=== PATIENT | male | born 1995 | race Caucasian/White ===

== ENCOUNTER 2023-12-12 16:18 | Emergency (ER) | payer SELFPAY ==
--- NOTE | ~2023-12-12 | XR_ITS ---
EXAMINATION: XR CHEST CLINICAL INFORMATION: Coughing. COMPARISON: None available. TECHNIQUE: Frontal view of the chest was obtained. FINDINGS: No significant abnormality is noted involving the heart, lungs, mediastinum, bony thorax or soft tissues. XR/XR chest 1V IMPRESSION: Unremarkable chest examination. Electronically signed by: Amauri Mackenzie MD 12/12/2023 07:39 PM EDT RP
[2023-12-12 16:59] VITALS: BP 139/99; PULSE 107; RESP 16; TEMP 36.1; O2SAT 99; BMI 23.1
[2023-12-12 18:52] LABS: IDNOW Serial# 08D9AD1C; Strep A Nucleic Acid Negative (Negative)
[2023-12-12 19:21] LABS: Influenza A PCR NEGATIVE (Negative); Influenza B PCR NEGATIVE (Negative); Resp Syncy Virus RNA Qual PCR NEGATIVE (Negative); SARS COV2 PCR INHOUSE NEGATIVE (Negative)
== END 2023-12-12 21:45 | disposition left against medical advice (07) ==
PROVIDERS: Physician Assistant; Emergency Provider Emergency Medicine
DX: R05.9 Cough, unspecified (principal); R51.9 Headache, unspecified; Z03.818 Encounter for observation for suspected exposure to other biological agents ruled out
CPT/HCPCS: 0241U; 71045; 87651; 99281

== ENCOUNTER 2024-03-21 08:51 | Emergency (ER) | payer MEDICAID, SELFPAY ==
[2024-03-21 09:06] VITALS: BP 129/84; PULSE 70; RESP 16; TEMP 36.4; O2SAT 100; BMI 22.4
[2024-03-21] MEDS: Ondansetron ODT 4 MG TAB.RAPDIS TRANSLINGU ×2 (09:46→10:26)
[2024-03-21 09:53] LABS: MANUAL DIFF FLAG NO
[2024-03-21 09:54] LABS: Basophils Percent Auto 0.3 % (0-2); Eosinophils Percent Auto 0.6 % (0-4); Hematocrit 36.4 % (42.0-52.0); Hemoglobin 12.3 g/dl (14.0-18.0); Imm Gran Abs Auto 0.03 X10*3/uL (0.00-0.03); Imm Gran Pct Auto 0.5 % (0.0-0.4); Lymphocytes Absolute Auto 1.2 X10*3/uL (1.2-4.9); Lymphocytes Percent Auto 18.1 % (20-40); Mean Corpuscular HGB Conc 33.8 g/dl (31.0-36.0); Mean Corpuscular Hemoglobin 27.6 pg (27.0-33.0); Mean Corpuscular Volume 81.6 fL (80.0-98.0); Mean Platelet Volume 8.2 fL (9.4-12.4); Monocytes Absolute Auto 0.4 X10*3/uL (0.1-1.2); Monocytes Percent Auto 6.6 % (2-11); Neutrophils Absolute Auto 4.7 x10*3/uL (2.0-8.3); Neutrophils Percent Auto 73.9 % (45-73); Platelet Count 250 X10*3/uL (160-400); Red Blood Count 4.46 X10*6/uL (4.60-5.80); Red Cell Distribution Width 13.3 % (11.0-16.0); White Blood Count 6.4 X10*3/uL (4.8-10.8)
[2024-03-21 10:11] LABS: Alanine Aminotransferase 15 U/L (0-40); Albumin Level 4.2 g/dL (3.5-5.0); Alkaline Phosphatase 81 U/L (39-117); Anion Gap 9 (12-20); Aspartate Amino Transferase 31 U/L (5-37); Bilirubin Direct 0.1 mg/dL (0.0-0.5); Bilirubin Total 0.3 mg/dL (0.0-1.0); Blood Urea Nitrogen 14 mg/dL (9-16); Calcium 8.7 mg/dL (8.4-10.2); Carbon Dioxide 30 mmol/L (22-29); Chloride 107 mmol/L (96-108); Creatinine Clr Calc Pharmacy 138.7; Estimated Glomerular Filt Rate > 60; Glucose Random 103 mg/dL (60-115); Lipase 11 U/L (8-78); Potassium 4.1 mmol/L (3.3-5.1); Sodium 142 mmol/L (135-145); Total Protein 7.6 g/dL (6.5-8.0)
--- NOTE | 2024-03-21 10:36 | ED_ITS ---
HPI - General Adult General Chief complaint: Dental/Oral Stated complaint: cracked tooth in pain Time Seen by Provider: 03/21/24 09:23 History of Present Illness HPI narrative: Patient with 2 complaints First complaint is a left lower cracked tooth that has become painful over past few days, he denies any swelling no fever no difficulty breathing or swallowing, no swelling under the tongue He says he is concerned about the toothache because in the past he had a toothache before he developed a pharyngeal abscess, at this time he has no fever he has no neck pain he has no sore throat and no symptoms similar to his previous pharyngeal abscess Second complaint is he has been nauseous for 3 days and started vomiting last night and he is vomited 3 times since last night, he has no diarrhea no abdominal pain,, no cough no runny nose no sore throat no rash Related Data Previous Rx's ?Medication ?Instructions ?Recorded amoxicillin 500 mg tablet 500 mg PO TID 7 days #21 tabs 03/21/24 ondansetron HCl 4 mg tablet 4 mg PO Q6H PRN nausea and 03/21/24 vomiting #14 tabs Allergies Allergy/AdvReac Type Severity Reaction Status Date / Time No Known Allergies Allergy Verified 03/21/24 09:09 [No Known Allergies*] [facility] Past Medical History Source: nursing notes reviewed Social History Social History Advance Directives: No Advance Directives Information Provided: Yes Physical Exam ED Vital Signs: Vital Signs - 24 hr 03/21/24 09:06 03/21/24 11:00 Temperature 97.6 F 97.6 F Pulse Rate 70 70 Respiratory Rate 16 16 Blood Pressure 129/84 129/84 Pulse Oximetry 100 100 Oxygen Delivery Method Room Air Room Air BMI result Body Mass Index 22.4 General appearance no distress Eyes no redness or discharge The pharynx no redness swelling or exudate, mucous membranes moist Dental exam there is a left lower molar that is decayed and broken, there is no swelling in the gum there is no impairment breathing and swallowing no trismus, there is no facial swelling or redness Neck is supple Respiratory no distress Chest clear to auscultation bilateral Abdomen soft nontender Extremities full range motion times Course Course Course Narrative: Patient with 2 complaints vomiting and a toothache For the vomiting the patient was given Zofran with good results and he was able to tolerate p.o. Electrolytes were sent without acute abnormality CBC was sent, white count was normal but hemoglobin was 12.3 and hematocrit was 36.4 Patient has no primary care doctor and works a hard job and has no fatigue he denies any bleeding or bruising, no blood in the stool no blood when he brushes his teeth He is advised to follow with an urgent care or to get a primary care doctor and have it rechecked and is given warnings about bleeding weakness and can return here any time for any worse condition or concerns For his vomiting which improved with the Zofran and he tolerates p.o. he is given a script for Zofran For his dental issue he is advised to follow with the dentist and given a prescription for amoxicillin Medications Administered Discontinued Medications Generic Name Dose Route Start Last Admin Trade Name Freq PRN Reason Stop Dose Admin Ondansetron HCl 4 mg 03/21/24 09:41 03/21/24 09:46 Ondansetron Odt 4 Mg Tab.Rapdis TRANSLINGU 03/21/24 09:42 4 mg ONCE ONE Administration Ondansetron HCl 4 mg 03/21/24 10:22 03/21/24 10:26 Ondansetron Odt 4 Mg Tab.Rapdis TRANSLINGU 03/21/24 10:23 4 mg ONCE ONE Administration Medical Decision Making Lab Data MDM Lab Attestation statement: I reviewed the patient's lab results. 03/21/24 09:49 03/21/24 09:49 Labs: Lab Results 03/21/24 Range/Units 09:49 WBC 6.4 (4.8-10.8) X10*3/uL RBC 4.46 L (4.60-5.80) X10*6/uL Hgb 12.3 L (14.0-18.0) g/dl Hct 36.4 L (42.0-52.0) % MCV 81.6 (80.0-98.0) fL MCH 27.6 (27.0-33.0) pg MCHC 33.8 (31.0-36.0) g/dl RDW 13.3 (11.0-16.0) % Plt Count 250 (160-400) X10*3/uL MPV 8.2 L (9.4-12.4) fL Immature Gran % (Auto) 0.5 H (0.0-0.4) % Neut % (Auto) 73.9 H (45-73) % Lymph % (Auto) 18.1 L (20-40) % [place] % (Auto) 6.6 (2-11) % Eos % (Auto) 0.6 (0-4) % Baso % (Auto) 0.3 (0-2) % Lymph # (Auto) 1.2 (1.2-4.9) X10*3/uL [place] # (Auto) 0.4 (0.1-1.2) X10*3/uL Eos # (Auto) 0.0 (0.0-0.4) X10*3/uL Baso # (Auto) 0.0 (0.0-0.2) X10*3/uL Abs Immat Gran (auto) 0.03 (0.00-0.03) X10*3/uL Absolute Neuts (auto) 4.7 (2.0-8.3) x10*3/uL Absolute Nucleated RBC 0.000 (0.0-0.012) X10*3/uL Nucleated RBC % (auto) 0.0 (0.0-0.2) /100WBC Sodium 142 (135-145) mmol/L Potassium 4.1 (3.3-5.1) mmol/L Chloride 107 (96-108) mmol/L Carbon Dioxide 30 H (22-29) mmol/L Anion Gap 9 L (12-20) BUN 14 (9-16) mg/dL Creatinine 0.88 (0.5-1.4) mg/dL Estim Creat Clear Calc 138.7 Estimated GFR > 60 Random Glucose 103 (60-115) mg/dL Calcium 8.7 (8.4-10.2) mg/dL Total Bilirubin 0.3 (0.0-1.0) mg/dL Direct Bilirubin 0.1 (0.0-0.5) mg/dL AST 31 (5-37) U/L ALT 15 (0-40) U/L Alkaline Phosphatase 81 (39-117) U/L Total Protein 7.6 (6.5-8.0) g/dL Albumin 4.2 (3.5-5.0) g/dL Lipase 11 (8-78) U/L Discharge Plan Discharge Clinical Impression: Dental caries, Vomiting, Anemia Patient Disposition: Home, Self-Care Additional Instructions: For the vomiting it is likely a viral illness and usually lasts several days and may develop diarrhea Isifran helped in you are able to tolerate liquids If you develop abdominal pain, uncontrollable vomiting feel dehydrated any worse condition or any concern return to the ER For the toothache we prescribed amoxicillin antibiotic and very important to follow with a dentist We found that your hemoglobin and hematocrit were a little bit low, and normally we would have you recheck it in a week or 2 with the primary doctor As you do not have a primary care doctor it would be good to check it in an urgent care or if you have insurance and the plan per emergency to get a primary care doctor you should get a primary care doctor and follow with him Signs of worsening anemia or bleeding from rectum were gums, bruising, feeling weak so return to the ER any time if you develop any of these symptoms, or any time for any worse condition or concerns Prescriptions: New amoxicillin 500 mg tablet 500 mg PO TID 7 Days Qty: 21 0RF ondansetron HCl 4 mg tablet 4 mg PO Q6H PRN (Reason: nausea and vomiting) Qty: 14 0RF Stand Alone Forms: Work/School Release Interventions: ED Discharge Assessment Last Done: 03/21/24 11:00 Discharge Date/Time: 03/21/24 11:00 Print Language: Finnish
[2024-03-21 11:00] VITALS: BP 129/84; PULSE 70; RESP 16; TEMP 36.4; O2SAT 100
== END 2024-03-21 11:00 | disposition home or self-care (01) ==
PROVIDERS: Physician Assistant Medical; Emergency Provider Emergency Medicine
DX: K02.9 Dental caries, unspecified (principal); R11.2 Nausea with vomiting, unspecified; D64.9 Anemia, unspecified
CPT/HCPCS: 36415; 80048; 80076; 83690; 85025; 99282; 99283

== ENCOUNTER 2024-06-19 05:38 | Emergency (ER) | payer OTHER, SELFPAY ==
[2024-06-19 05:44] VITALS: BP 121/48; PULSE 82; RESP 16; TEMP 36.7; O2SAT 100; BMI 23.7
--- OUTSIDE RECORDS SUMMARY | 2024-06-19 06:50 | XMS_ITS | Clinical Summary ---
Author Organization [facility] Address [address] [place] [phone] Phone Care Team Providers Care Metal Trimmer Name Role Phone Unavailable Primary Care Provider Unavailabl e Immunizations Immunization Administration Dates Next Due DTaP 05/24/1999, 6,1994,09/29,1994 Hep B, ped/adol 02/14/1995,1994,1994 Hib (PRP-T) 08/23/1995, 5,1994,07/24 IPV 05/24/1999 Influenza, injectable, quadrivalent 01/30/2011 Influenza, injectable, quadr ivalent, preservative free 12/25/2007 MMR 05/24/1999,05/31/1995 Meningococcal Conj (Menactra) MCV4P 01/30/2011,1 OPV 1994,1994,1994 Td (adult) (Tenivac), 5 Lf t etanus toxoid, PF, adsorbed 06/13/2004 Tdap 07/01/2008 Varicella 12/25/2007,12/20/1998 Family History Relation Name Status Comments Father Alive asthma/ BPH( BE NIGN PROSTATIC HYPERTROPHY) age: 60 Father's Brother Alive healthy Father's Sister Alive healthy Maternal Grandfather goodpas ture syndrome age: 74 Maternal Grandmother Alive brain a nevrysm age: 70 Mother Alive hypertension ag e: 46 Other Alive Siblings: healt hy Paternal Grandfather lung CA age: 72 Paternal Grandmother colon C A, breast CA age: 74 Social History Tobacco Use Types Packs/Day Years Used Date Smoking Tobacco: Never Assessed Sex and Gender Information Value Date Recorded Sex Assigned at Not on file Legal Sex Male 6:22 PM EDT Gender Identity Not on file Sexual Orientation Not on file Last Filed Vital Signs Vital Sign Reading Time Taken Comments Blood Pressure 122/64 01/30/2011 12:00 AM EST Pulse - - Temperature - - Respiratory Rate - - Oxygen Saturation - - Inhaled Oxygen Concentration - - Weight 70.1 kg (154 lb 9.6 oz) 01/30/2011 12:00 AM EST Height 186.1 cm (6' 1.25 ) 01/30/2011 12:[address] Body Mass Index 20.26 01/30/2011 12:00 AM EST Plan of Treatment Health Maintenance Due Date Last Done Comments DTaP,Tdap,and Td Vaccines (7 - Td or Tdap) 07/01/2018 07/01/2008, 06/13/2004, 05/24/1999, Additional history exists Influenza Vaccines (#1) 2023 01/30/2011, 12/24 COVID-19 Vaccine ( season) 2023 Hepatitis B Vaccines Completed 02/14/1995, 1994, 1994 HIB Vaccines Completed 08/23/1995, 11/04, 1994, Additional history exists IPV Vaccines Completed 05/24/1999, 11/04, 1994, Additional history exists MMR Vaccines Completed 05/24/1999, 05/31/1995 Varicella Vaccines Completed 12/25/2007, 12/20/1998 Meningococcal Vaccine Completed 01/30/2011, 008 HPV Vaccines Aged Out No longer eligi ble based on patient's age to complete this topic Hepatitis A Vaccines Aged Out No long er eligible based on patient's age to complete this topic Men B Vaccine Aged Out No longer elig ible based on patient's age to complete this topic Pneumococcal Vaccine Aged Out No long er eligible based on patient's age to complete this topic
--- OUTSIDE RECORDS SUMMARY | 2024-06-19 06:50 | XMS_ITS | Encounter Summary ---
Author Organization [facility] Address [address] [place] [phone] Phone Care Team Providers Care Ship Cleaner Name Role Phone Unavailable Primary Care Provider Unavailabl e Encounter Details Date Type Department Care Team (Late st Contact Info) Description 07/22/2017 Conversion Encounter [facility] [address] [place] [address] Social History Tobacco Use Types Packs/Day Years Used Date Smoking Tobacco: Never Assessed Sex and Gender Information Value Date Recorded Sex Assigned at Not on file Legal Sex Male 6:22 PM EDT Gender Identity Not on file Sexual Orientation Not on file documented as of this encounter Plan of Treatment Not on file documented as of this encounter Visit Diagnoses Not on filedocumented in this encounter
--- OUTSIDE RECORDS SUMMARY | 2024-06-19 06:50 | XMS_ITS | Clinical Summary ---
Author Organization [employer] Address [address] [place] [address] Care Team Providers Care Top Frame Fitter Name Role Phone Unavailable Primary Care Provider Unavailabl e Allergies No known active allergies Medications No known medications Active Problems No known active problems Encounters Date Type Department Care Team Description 04/17/2024 Patient Outreach [address] [phone] Roger Vanessa Recovery Supports from Last 3 Months Immunizations Name Administration Dates Next Due Pfizer Covid-19 Vaccine 12+ Bivalent 03/15/2022 Social History Tobacco Use Types Packs/Day Years Used Date Smoking Tobacco: Never Assessed Sex and Gender Information Value Date Recorded Sex Assigned at Male 01/02/2022 10:26 AM EDT Legal Sex Male 10:26 AM EDT Gender Identity Not on file Sexual Orientation Not on file Plan of Treatment Health Maintenance Due Date Last Done Comments Depression Screening 1994 HIV Screening 1994 SDOH Screening 1994 Alcohol/Substance Use Screening 2006 Tobacco Screening 2006 Family Planning (PISQ) 2009 Hepatitis C Screening 2012 DTaP/Tdap/Td Vaccines (7 - Td or Tdap) 07/01/2018 07/01/2008, 06/13/2004, 05/24/1999, Additional history exists COVID-19 Vaccine ( season) 2023 03/15/2022, 10/05/2020 Influenza Vaccine (#1) 2023 01/30/2011, 2007 Zoster Vaccines (1 of 2) 2044 RSV Patients and Patients Aged 60 years or older (1 - 1-dose 75+ series) 2069 Hepatitis B Vaccines Completed 02/14/1995, 1994, 1994 HIB Vaccines Completed 08/23/1995, 11/04, 1994, Additional history exists IPV Vaccines Completed 05/24/1999, 11/04, 1994, Additional history exists Meningococcal Vaccine Completed 01/30/2011, 008 HPV Vaccines Aged Out No longer eligi ble based on patient's age to complete this topic Hepatitis A Vaccines Aged Out No long er eligible based on patient's age to complete this topic Pneumococcal Vaccine: Pediatrics (0 to 5 Years) and At-Risk Patients (6 to 49) Years) Aged Out No longer eligible based on patient's age to complete this topic RSV under 20 months Aged Out No longe r eligible based on patient's age to complete this topic Rotavirus Vaccines Aged Out No longer eligible based on patient's age to complete this topic Insurance [facility] FULL
--- OUTSIDE RECORDS SUMMARY | 2024-06-19 06:50 | XMS_ITS | Clinical Summary ---
Author Organization [facility] Address [address] [place] [address] Care Team Providers Care Master Police Detective Name Role Phone Unavailable Primary Care Provider Unavailabl e Social History Tobacco Use Types Packs/Day Years Used Date Smoking Tobacco: Never Assessed Sex and Gender Information Value Date Recorded Sex Assigned at Not on file Legal Sex Male 1:08 PM EDT Gender Identity Not on file Sexual Orientation Not on file Plan of Treatment Health Maintenance Due Date Last Done Comments Hepatitis C Virus Screening 1994 HIV Screening 05/23/2007 DTaP/Tdap/Td Vaccines (1 - Tdap) 2013 Hepatitis B Vaccines (1 of 3 - 19+ 3-dose series) 2013 COVID-19 Vaccine (2023-2 5 season) 2023 HPV Vaccines Aged Out No longer eligi ble based on patient's age to complete this topic Pneumococcal Vaccine: Pediat flor (0-5 Years) and At-Risk Patients (6 to 49 Years) Aged Out No longer eligible b ased on patient's age to complete this topic
--- NOTE | 2024-06-19 06:53 | ED.DENTAL ---
HPI - Dental/Oral General Chief complaint: Dental/Oral Stated complaint: Lower jaw pain Time Seen by Provider: 06/19/24 06:47 Source: patient and old records reviewed Mode of arrival: ambulatory Limitations: no limitations History of Present Illness ED Provider: DELON BRENNAN Narrative: 29 year old male with no significant past medical history presents to the ED due to dental pain. He describes pain and swelling in the bottom left molar which started yesterday. He explains pain and swelling has increased overnight prompting him to seek care today. He denies fever, drainage from the tooth, nausea, vomiting, difficulty breathing, painful swallowing, facial paralysis, ear pain, sore throat. MD Complaint: tooth pain Onset (ago): hour(s) Duration: constant Severity: moderate Relieving factors: nothing Exacerbating factors: nothing Context: poor dental care Treatment prior to arrival: none Related Data Previous Rx's ?Medication ?Instructions ?Recorded amoxicillin 500 mg tablet 500 mg PO TID 7 days #21 tabs 03/21/24 ondansetron HCl 4 mg tablet 4 mg PO Q6H PRN nausea and 03/21/24 vomiting #14 tabs amoxicillin 875 mg-potassium 1 tab PO BID #14 tabs 06/19/24 clavulanate 125 mg tablet Allergies Allergy/AdvReac Type Severity Reaction Status Date / Time No Known Allergies Allergy Verified 06/19/24 05:46 [No Known Allergies*] Review of Systems Review of Systems: Constitutional : No Fever, No Chills ENT/Mouth : No swallowing difficulty, no change in voice, positive dental pain, positive jaw pain, Eyes: No Eye Pain, No Swelling Cardiovascular : No Chest Pain, No SOB Respiratory : No Cough, No Sputum Gastrointestinal : No Nausea, No Vomiting, No Diarrhea Genitourinary : No Dysuria Musculoskeletal : No Myalgias Skin : No rash Neuro : No Weakness, No Numbness, No Headache Yes all other systems are reviewed and are negative PMFSH Past Medical History Attestation statement: The following information was validated with the patient. Source: unable to obtain Social History Social History Advance Directives: No Advance Directives Information Provided: Yes Do you have a plan to hurt others: No Plan Physical Exam Vital Signs: Vital Signs: Last Vital Signs Temp 98.2 F 06/19/24 08:37 Pulse 73 06/19/24 08:37 Resp 18 06/19/24 08:37 BP 100/56 L 06/19/24 08:37 Pulse Ox 98 06/19/24 08:37 O2 Del Method Room Air 06/19/24 08:37 BMI result Body Mass Index 23.7 Appearance: Alert. Oriented X3. No acute distress. Eyes: Pupils equal, round and reactive to light. ENT: Pharynx normal. Uvula midline, No tonsillar exudates. Mild sublingual swelling, mild submandibular swelling. No trismus, no facial cellulitis Neck: Normal inspection. Neck supple. CVS: Normal heart rate and rhythm. Pulses normal. Respiratory: No respiratory distress. Breath sounds normal. Abdomen: Soft and nontender. Skin: Skin warm and dry. Normal skin color. Normal skin turgor. Extremities: No lower extremity edema. No calf ttp Neuro: Oriented X 3. No motor deficit. No sensory deficit. CN2-12 intact Medications Administered Discontinued Medications Generic Name Dose Route Start Last Admin Trade Name Freq PRN Reason Stop Dose Admin Hydrocodone Bitart/Acetaminophen 1 tab 06/19/24 07:20 06/19/24 07:23 Hydrocodone Bit/Acetam 5/325 Tablet PO 06/19/24 07:21 1 tab ONCE ONE Administration Amoxicillin/Clavulanate Potassium 875 mg 06/19/24 07:20 06/19/24 07:24 Amoxicillin/Potassium Clav 875 Mg Tablet PO 06/19/24 07:21 875 mg ONCE ONE Administration Prednisone 40 mg 06/19/24 07:20 06/19/24 07:23 Prednisone 20 Mg Tablet PO 06/19/24 07:21 40 mg ONCE ONE Administration Medical Decision Making Medical Decision Making [facility] Narrative: 29 year old male with no significant past medical history presents to the ED due to dental pain. He describes pain and swelling in the bottom left molar which started yesterday. He explains pain and swelling has increased overnight prompting him to seek care today. He denies fever, drainage from the tooth, nausea, vomiting, difficulty breathing, painful swallowing, facial paralysis, ear pain, sore throat. Patient has a dental appointment in 5 days. Patient's vital signs are stable, he is in no acute distress and is non toxic appearing. ON physical exam, there is mild submandibular and sublingual swelling. There is no evidence of abscess on gum line or drainage from affected tooth. There are no voice changes/ muffled voice, uvula is midline, there is no facial paralysis, trismus, or signs of facial cellulitis. Airway is patent with no evidence of mild swelling invading airway. Patient started on prednisone for swelling, hydrocodone for pain management and Augmentin to address dental infection. Differential Diagnosis Differential Diagnoses: The differential diagnosis associated with the presentation includes [employer]OR, abscess, tooth infection, trigeminal neuralgia, sialadentitis, ludwigs angina Admission/Observation Consideration of admission/observation: Escalation of care including admission/observation considered swelling improved feels much better stable for DC Lab Data MDM Lab Attestation statement: I reviewed the patient's lab results. External Record Review External record reviewed: Inpatient record Prescription Management I considered prescription management with: Pain Medication (hydrocodone), Antibiotic (Augmentin ) and Other (prednisone) Discharge Plan Discharge Clinical Impression: Dental infection, Toothache Patient Disposition: Home, Self-Care Instructions: Toothache (ED) Additional Instructions: You were seen in the ED today due to dental pain. The swelling that you are experiencing is mild and does not invade your airway. It is important that you follow up with your dentist to address the cause of your dental pain. There was no evidence of an abscess on the gum line or discharge coming from the affected tooth. You were started on prednisone, a steroid to address the swelling caused by the dental infection. You were given 1 tablet of hydrocodone 5mg/325mg which is a pain reliever comprised of 5mg of oxycodone an opiate pain reliever with 325mg of acetaminophen (Tylenol) to manage your pain. You were started on Augmentin, an antibiotic to treat the dental infection. You can alternate tylenol and motrin to further manage your pain within 6 hours of discharge. Please return to the ED if you begin to experience fevers over 100.4, increased pain, swelling, difficultly breathing, facial paralysis, voice changes, or any other concerns. On amoxicillin-clavulanate, softer bowel movements are to be expected. Call your provider if you move your bowels more than 4 times a day, your bowel movements are almost all liquid, or you get a rash.? Prescriptions: New amoxicillin-pot clavulanate 875-125 mg tablet 1 tab PO BID Qty: 14 0RF No Action amoxicillin 500 mg tablet 500 mg PO TID 7 Days Qty: 21 0RF ondansetron HCl 4 mg tablet 4 mg PO Q6H PRN (Reason: nausea and vomiting) Qty: 14 0RF Stand Alone Forms: Work/School Release Print Language: Thai
--- NOTE | 2024-06-19 07:00 | PC.NURSE ---
Resumed care of patient at 0700, he is currently waiting to be seen by a provider. Reporting 1.5weeks ago he broke his left back molar, he does have any apt to get it removed next week on the cd. He does have a history of pharyngeal abscess. Pt denies fevers. Reports hot/cold sensitivity but hot worse than cold. Pt reporting increased swelling, including under his tongue. Pt is able to speak in full sentences. No puss or blood noted to be draining at this time.
[2024-06-19] MEDS: HYDROcodone Bit/Acetam 5/325 TABLET 1 TAB PO (07:23)
[2024-06-19] MEDS: predniSONE 20 MG TABLET 40 MG PO (07:23)
[2024-06-19] MEDS: Amoxicillin/Potassium Clav 875 MG TABLET PO (07:24)
[2024-06-19 08:37] VITALS: BP 100/56; PULSE 73; RESP 18; TEMP 36.8; O2SAT 98
[2024-06-19 09:03] VITALS: BP 100/56; PULSE 73; RESP 18; TEMP 36.8; O2SAT 98
== END 2024-06-19 09:04 | disposition home or self-care (01) ==
PROVIDERS: Emergency Provider Emergency Medicine
DX: K04.7 Periapical abscess without sinus (principal); K08.89 Other specified disorders of teeth and supporting structures
CPT/HCPCS: 99283; 99284

== ENCOUNTER → 2024-10-27 14:04 | Outpatient (BNVA) | payer OTHER, SELFPAY | PROVIDERS: Visit Provider Physician Assistant Medical | DX: S67.195A Crushing injury of left ring finger, initial encounter (principal); S67.197A Crushing injury of left little finger, initial encounter; W29.8XXA Contact with other powered hand tools and household machinery, initial encounter; Z23 Encounter for immunization | CPT/HCPCS: 12001; 73140; 90715; 99204 ==

== ENCOUNTER → 2024-10-29 15:13 | Outpatient (BNVA) | payer OTHER, SELFPAY | PROVIDERS: Visit Provider Physician Assistant | DX: S67.195A Crushing injury of left ring finger, initial encounter (principal); S67.197A Crushing injury of left little finger, initial encounter; W29.8XXA Contact with other powered hand tools and household machinery, initial encounter | CPT/HCPCS: 99213 ==

== ENCOUNTER → 2024-10-31 14:18 | Outpatient (BNVA) | payer OTHER, SELFPAY | PROVIDERS: Visit Provider Physician Assistant | DX: S67.195A Crushing injury of left ring finger, initial encounter (principal); S67.197A Crushing injury of left little finger, initial encounter; W29.8XXA Contact with other powered hand tools and household machinery, initial encounter | CPT/HCPCS: 99213 ==

== ENCOUNTER → 2024-11-04 13:35 | Outpatient (BNVA) | payer OTHER, SELFPAY | PROVIDERS: Visit Provider Physician Assistant Medical | DX: S67.195D Crushing injury of left ring finger, subsequent encounter (principal); S67.197D Crushing injury of left little finger, subsequent encounter; W29.8XXD Contact with other powered hand tools and household machinery, subsequent encounter; Z02.79 Encounter for issue of other medical certificate | CPT/HCPCS: 99213 ==